=== PATIENT | male | born 1970 | race American Indian/Alaskan Native ===

== ENCOUNTER 2019-07-09 17:33 | Emergency (ER) | payer SELFPAY ==
--- NOTE | 2019-07-09 18:20 | XRay Report ---
LEFT WRIST, 3 VIEWS INDICATION / CLINICAL INFORMATION: swelling, pain, deformity. COMPARISON: None available. FINDINGS: There is a nondisplaced transverse fracture through the distal radial metadiaphysis. There is nondisp laced vertical component of the fracture extending into the proximal diaphysis. The remainder of the wrist is intact. Carpal bones are intact. Alignment is normal. IMPRESSION: Nondisplaced transverse fracture of the distal radius. There is also a nondisplaced verti amy component of the fracture extending into the proximal diaphysis. Signer Name: Randi Beebe MD Signed: 07/09/2019 6:15 PM Workstation Name: [id number]
[2019-07-09 20:53] VITALS: BP 115/73
[2019-07-09] MEDS ORDERED: IBUPROFEN 600 MG TAB PO ONE (21:03)
--- NOTE | 2019-07-09 21:07 | Emergency Department Report ---
Upper Extremity - [facility] Chief Complaint: Extremity Injury, Upper Stated Complaint: LT ARM INJURY Time Seen by Provider: 07/09/19 20:55 Upper Extremity: Left Wrist Occurred When: Today Mechanism: Fall Severity: severe Symptoms: Yes Pain with Movement, Yes Deformity, Yes Limited Range of Movement Other History: 49 y/o male comes in for left wrist pain and swelling s/p fall today. PMH none no meds. Pain 9/10. ED Review of Systems ROS: Stated complaint: LT ARM INJURY Other details as noted in HPI ED Past Medical Hx - Past Medical History Previous Medical History?: No - Surgical History Past Surgical History?: No - Social History Smoking Status: Current Every Day Smoker Substance Use Type: Alcohol - Medications Home Medications: Home Medications Medication Instructions Recorded Confirmed Last Taken Type Ibuprofen [Motrin 600 MG tab] 600 mg PO Q8H PRN #30 tablet 07/09/19 Unknown Rx oxyCODONE /ACETAMINOPHEN [Percocet 1 tab PO Q6HR PRN #12 tablet 07/09/19 Unknown Rx 5/325] Upper Extremity Exam - Exam General: Vital signs noted. No distress. Alert and acting appropriately. ED Course Vital Signs 07/09/19 20:49 Temperature 98.1 F Pulse Rate 74 Respiratory 18 Rate Blood Pressure 115/73 O2 Sat by Pulse 95 Oximetry ED Medical Decision Making - Medical Decision Making 49 y/o male comes in for left wrist pain and swelling s/p fall today. PMH none no meds. Pain 9/10. left wrist fracture. volar splint. Ibuprofen 600mg and Percocet 5/325mg q4-6 hour pain. F/U with orthopedics in 5-7 days. Critical care attestation.: If time is entered above; I have spent that time in minutes in the direct care of this critically ill patient, excluding procedure time. ED Disposition Clinical Impression: Radial fracture Disposition: - TO HOME OR SELFCARE Is pt being admited?: No Does the pt Need Aspirin: No Condition: Stable Instructions: Wrist Fracture in Adults (ED) Prescriptions: Ibuprofen [Motrin 600 MG tab] 600 mg PO Q8H PRN #30 tablet PRN Reason: Pain , Severe (7-10) oxyCODONE /ACETAMINOPHEN [Percocet 5/325] 1 tab PO Q6HR PRN #12 tablet PRN Reason: Pain Referrals: JASIEL GUZMÁN MD [Staff Physician] - 3-5 Days Forms: Work/School Release Form(ED)
== END 2019-07-09 22:03 | disposition home or self-care (01) ==
LOC: ED 17:33
DX: S52.592A Other fractures of lower end of left radius, initial encounter for closed fracture (principal); F17.200 Nicotine dependence, unspecified, uncomplicated; F10.10 Alcohol abuse, uncomplicated; Z79.899 Other long term (current) drug therapy; W18.39XA Other fall on same level, initial encounter; Y93.89 Activity, other specified; Y92.89 Other specified places as the place of occurrence of the external cause; Y99.8 Other external cause status